=== PATIENT | female | born 1980 | race Asian ===

== ENCOUNTER 2022-07-22 09:55 | Inpatient (IN) | payer OTHER ==
[2022-07-22] MEDS ORDERED: AMPICILLIN - 2 GM in SODIUM CHLORIDE 100 ML IVPB ONE (10:30)
[2022-07-22] MEDS ORDERED: AMPICILLIN SODIUM 2 GM VIAL ONE (10:54)
[2022-07-22 11:12] LABS: BASO % 0.4 % (0-2.0); EOS % 1.7 % (0-4.5); HEMATOCRIT 36.9 % (32.4-45.2); HEMOGLOBIN 12.3 GM/dL (10.7-15.3); LYMPH % 11.3 % (8-40); MCH 29.9 pg (25.7-33.7); MCHC 33.5 g/dl (32.0-36.0); MEAN CELL VOLUME 89.2 fl (80-96); MEAN PLT VOLUME 8.8 fl (7.5-11.1); MONO % 7.6 % (3.8-10.2); PLATELET COUNT 238 10^3/uL (134-434); RBC 4.14 M/mm3 (3.60-5.2); RDW 14.4 % (11.6-15.6); WHITE BLOOD COUNT 10.6 K/mm3 (4.0-10.0)
[2022-07-22 11:20] LABS: INR 0.9 (0.83-1.09); PROTHROMBIN TIME (PATIENT) 10.3 SEC (9.7-13.0)
[2022-07-22 11:27] LABS: CALCIUM 8.7 mg/dL (8.5-10.1)
[2022-07-22 11:28] LABS: BLOOD UREA NITROGEN 8.9 mg/dL (7-18)
[2022-07-22 11:31] LABS: CREATININE 0.6 mg/dL (0.55-1.3)
[2022-07-22 11:45] VITALS: BMI 24.4
[2022-07-22] MEDS ORDERED: FENTANYL/BUPIVACAINE/NS/PF - PCEA - 50 ML DISP.SYRIN EP ONE ×2 (12:54→15:10)
[2022-07-22] MEDS: FENTANYL/BUPIVACAINE/NS/PF - PCEA - 50 ML DISP.SYRIN EP SCH ×2 (13:15→16:40)
[2022-07-22] MEDS ORDERED: ELECTROLYTE-148 SOLN 1,000 ML IV SCH (13:30)
[2022-07-22] MEDS ORDERED: NALOXONE HCL 0.4 MG/ML VIAL IVPUSH PRN (14:43)
[2022-07-22] MEDS: AMPICILLIN - 1 GM in SODIUM CHLORIDE 100 ML IVPB SCH ×3 (15:00→23:40)
[2022-07-22] MEDS ORDERED: AMPICILLIN SODIUM 1 GM VIAL ONE ×2 (15:05→18:27)
[2022-07-22] MEDS ORDERED: OXYTOCIN 30 UNITS in 0.9% NS 30 UNIT/500 ML INFUS.BAG IVPB SCH (17:00)
[2022-07-22] MEDS ORDERED: OXYTOCIN 30 UNITS in 0.9% NS 30 UNIT/500 ML INFUS.BAG IVPB ONE (18:27)
[2022-07-22] MEDS ORDERED: OXYTOCIN 20 UNITS in 0.9% NS 20 UNIT/1,000 ML INFUS.BAG IV ONE (19:44)
[2022-07-22] MEDS ORDERED: METHYLERGONOVINE MALEATE 0.2 MG/1 ML AMP IM PRN (22:24)
[2022-07-22] MEDS ORDERED: BENZOCAINE 28 GM HEMORRHOIDAL OINTMENT TP PRN (22:24)
[2022-07-22] MEDS ORDERED: oxyCODONE HCL 5 MG TABLET PO PRN (22:24)
[2022-07-22] MEDS ORDERED: WITCH HAZEL 50% (TUCKS) 40 PAD/JAR PAD TP PRN (22:24)
[2022-07-22] MEDS ORDERED: BENZOCAINE 20% 57 GM BOTTLE TP PRN (22:24)
[2022-07-22] MEDS ORDERED: ACETAMINOPHEN 325 MG TABLET (FP) PO PRN (22:24)
[2022-07-22] MEDS ORDERED: BISACODYL 10 MG SUPP.RECT RC PRN (22:24)
[2022-07-22] MEDS ORDERED: OXYTOCIN 20 UNITS in 0.9% NS 20 UNIT/1,000 ML INFUS.BAG IV SCH (22:30)
[2022-07-22] MEDS ORDERED: IBUPROFEN 600 MG TABLET (FP) PO ONE (23:36)
[2022-07-22] MEDS: IBUPROFEN 600 MG TABLET (FP) PO PRN (23:45)
[2022-07-23] MEDS: PRENATAL VITAMINS W/ FOLIC ACID TABLET (FP) PO SCH (09:05)
[2022-07-23 09:16] LABS: BASO % 0.4 % (0-2.0); HEMATOCRIT 35.2 % (32.4-45.2); HEMOGLOBIN 11.2 GM/dL (10.7-15.3); LYMPH % 10.3 % (8-40); MCH 28.9 pg (25.7-33.7); MCHC 31.8 g/dl (32.0-36.0); MEAN CELL VOLUME 90.8 fl (80-96); MEAN PLT VOLUME 8.8 fl (7.5-11.1); MONO % 8.7 % (3.8-10.2); NEUT % 78.6 % (42.8-82.8); PLATELET COUNT 216 10^3/uL (134-434); RBC 3.87 M/mm3 (3.60-5.2); RDW 14.8 % (11.6-15.6); WHITE BLOOD COUNT 16.9 K/mm3 (4.0-10.0)
[2022-07-23] MEDS ORDERED: DIPHTH,PERTUSS(ACELL),TET 0.5 ML DISP.SYRIN IM ONE (17:27)
[2022-07-23] MEDS: FENTANYL/BUPIVACAINE/NS/PF - PCEA - 50 ML DISP.SYRIN EP SCH (17:40)
[2022-07-23] MEDS: IBUPROFEN 600 MG TABLET (FP) PO PRN (21:14)
[2022-07-23] MEDS ORDERED: SENNOSIDES/DOCUSATE COMBO (SENNA PLUS) TABLET (UD) PO PRN (22:00)
[2022-07-24 09:03] VITALS: BP 126/73; PULSE 50; RESP 20; TEMP 97.9
[2022-07-24] MEDS: PRENATAL VITAMINS W/ FOLIC ACID TABLET (FP) PO SCH (09:31)
[2022-07-24] MEDS: IBUPROFEN 600 MG TABLET (FP) PO PRN (09:31)
[2022-07-24] MEDS ORDERED: DIPHTH,PERTUSS(ACELL),TET 0.5 ML DISP.SYRIN IM ONE (11:00)
== END 2022-07-24 15:20 | disposition home or self-care (01) | DRG 560 ==
LOC: JLDR 09:55 → J3W 23:34
PROVIDERS: ADMIT Obstetrics & Gynecology; ATTEND Obstetrics & Gynecology
PROC: 10E0XZZ Delivery of Products of Conception, External Approach (ICD-10-PCS; principal; 2022-07-22)
DX: O42.02 Full-term premature rupture of membranes, onset of labor within 24 hours of rupture (principal); Z3A.49 Greater than 42 weeks gestation of pregnancy; Z37.0 Single live birth
CPT/HCPCS: 36415; 59409; 80048; 85025; 85610; 85730; 86780; 86850; 86900; 86901; 90715; C9803-CS; U0003; U0005